=== PATIENT | female | born 2000 | race Hispanic/Latino ===

== ENCOUNTER 2022-03-20 10:47 | Outpatient (CLI) | payer BC, OTHER | END 2022-03-20 10:48 | disposition home or self-care (01) | LOC: CSHLAB 10:47 | PROVIDERS: ATTEND Obstetrics & Gynecology | DX: Z20.822 Contact with and (suspected) exposure to COVID-19 (principal) | CPT/HCPCS: U0003; U0005 ==

== ENCOUNTER 2022-03-20 11:29 | Day surgery (SDC) | payer BC, OTHER ==
[2022-03-20 12:13] VITALS: BMI 27.4
[2022-03-20] MEDS ORDERED: hydrALAZINE 20 MG/ML VIAL SLOW IVP PRN (12:32)
== END 2022-03-20 13:15 | disposition home or self-care (01) ==
LOC: CSHLD/OP 11:29
PROVIDERS: ATTEND Obstetrics & Gynecology
DX: O99.891 Other specified diseases and conditions complicating pregnancy (principal); L50.9 Urticaria, unspecified; Z3A.38 38 weeks gestation of pregnancy

== ENCOUNTER 2022-03-25 19:30 | Inpatient (IN) | payer BC, MEDICAID ==
[~2022-03-25 19:30] MED LIST: Acetaminophen 500 MG TAB PO PRN; Butorphanol Tartrate 1 MG/ML VIAL SLOW IVP PRN; Carboprost 250 MCG/ML AMP IM PRN; Diphenoxylate HCl/Atropine Tablet PO PRN; Docusate 100 MG CAP PO PRN; HYDROcodone/Acetaminophen 5/325 mg Tablet PO PRN; Ibuprofen 800 MG TAB PO PRN; Lidocaine 1% (PF) 30 ML VIAL SC PRN; Methylergonovine 0.2 MG/ML VIAL IM PRN; Misoprostol 100 MCG TAB VAG SCH; Misoprostol 200 MCG TAB PR PRN; NS w/ Oxytocin 30 units 500 ML IV SCH; Ondansetron PF 4 MG/2 ML Vial IVP PRN; Promethazine HCl 25 MG/ML VIAL IM PRN; Zolpidem Tartrate 5 MG TAB PO PRN; hydrALAZINE 20 MG/ML VIAL SLOW IVP PRN
[2022-03-26] MEDS ORDERED: NS w/ Oxytocin 30 units 500 ML IV SCH (00:30)
[2022-03-26 00:48] VITALS: BMI 28.1
[2022-03-26 01:42] LABS: Mean Corpuscular HGB CONC 34.5 g/dL (32.0-36.0); Mean Corpuscular Hemoglobin 28.4 pg (27.0-33.0); Mean Corpuscular Volume 82.5 fl (81.6-98.3); Mean Platelet Volume 10.2 fl (7.4-10.4); Platelet Count 226 10x3/uL (150-450); RBC Distribution Width 12.8 % (11.5-14.5); Red Blood Cell (RBC) Count 4.22 10x6/uL (3.90-5.03); White Blood Cell (WBC) Count 10.6 10x3/uL (3.5-10.5)
[2022-03-26] MEDS: Misoprostol 100 MCG TAB VAG SCH ×4 (01:44→14:22)
[2022-03-26 02:13] LABS: Hep B Surf Ag Non-Reactive S/CO (NonReactive)
[2022-03-26 02:14] LABS: Syphilis Antibody Nonreactive (Nonreactive); Syphilis Antibody Index 0.03 S/CO (<1.00 Non-Reactive)
[2022-03-26 02:26] LABS: HBSAg Index 0.15 S/CO (0-0.99)
[2022-03-26] MEDS: Lactated Ringer's 1,000 ML IV SCH ×2 (09:35→14:21)
[2022-03-26] MEDS ORDERED: Fentanyl 2 mcg/Bup 0.1% Cadd 100 ML ONE (13:42)
[2022-03-26] MEDS ORDERED: Lactated Ringer's 500 ML IV PRN (14:49)
[2022-03-26] MEDS ORDERED: Ondansetron PF 4 MG/2 ML Vial IVP PRN (14:49)
[2022-03-26] MEDS ORDERED: diphenhydrAMINE 50 MG/ML VIAL IVP PRN (14:49)
[2022-03-26] MEDS ORDERED: ePHEDrine Sulfate 50 MG/10 ML VIAL SLOW IVP PRN (14:49)
[2022-03-26] MEDS ORDERED: Moisturizing Cream (Eucerin) 113 GM JAR TOP PRN (14:49)
[2022-03-26] MEDS ORDERED: Acetaminophen 325 MG TAB PO PRN (14:49)
[2022-03-26] MEDS ORDERED: Promethazine HCl 25 MG/ML VIAL IM PRN (14:49)
[2022-03-26] MEDS ORDERED: Naloxone HCl 0.4 mg/ml Vial IVP PRN ×2 (14:49)
[2022-03-26] MEDS ORDERED: Fentanyl 2 mcg/Bupivacaine 0.1% Cassette 100 ML EPIDURAL SCH (15:00)
[2022-03-26] MEDS ORDERED: Communication Order-Pharmacy FS SCH (15:00)
[2022-03-26] MEDS ORDERED: Methylergonovine 0.2 MG/ML VIAL ONE (20:24)
[2022-03-26] MEDS ORDERED: Misoprostol 200 MCG TAB ONE (20:25)
[2022-03-26] MEDS ORDERED: Ibuprofen 800 MG TAB PO PRN (21:03)
[2022-03-27] MEDS ORDERED: Misoprostol 200 MCG TAB VAG PRN (01:17)
[2022-03-27] MEDS ORDERED: Varicella virus, LIVE 0.5 ML VIAL SC ONE (01:17)
[2022-03-27] MEDS ORDERED: Benzocaine-Menthol 82.5 ML CAN TOP PRN (01:17)
[2022-03-27] MEDS ORDERED: Boostrix 0.5 ML (Tdap) VIAL IM ONE (01:17)
[2022-03-27] MEDS ORDERED: HYDROcodone/Acetaminophen 5/325 mg Tablet PO PRN (01:17)
[2022-03-27] MEDS ORDERED: Bisacodyl 10 MG SUPP PR PRN (01:17)
[2022-03-27] MEDS ORDERED: diphenhydrAMINE 25 MG CAP PO PRN (01:17)
[2022-03-27] MEDS ORDERED: Milk Of Magnesia 30 ML UDCUP PO PRN (01:17)
[2022-03-27] MEDS ORDERED: Zolpidem Tartrate 5 MG TAB PO PRN (01:17)
[2022-03-27] MEDS ORDERED: Preparation H Ointment 28 GM TUBE PR PRN (01:17)
[2022-03-27] MEDS ORDERED: hydrALAZINE 20 MG/ML VIAL SLOW IVP PRN (01:17)
[2022-03-27] MEDS ORDERED: Measles/Mumps/Rubella 10 MCG/0.5 ML VIAL SC ONE (01:17)
[2022-03-27] MEDS ORDERED: Ondansetron PF 4 MG/2 ML Vial IVP PRN (01:17)
[2022-03-27] MEDS ORDERED: Promethazine HCl 25 MG/ML VIAL IM PRN (01:17)
[2022-03-27] MEDS ORDERED: Lanolin Ointment 7 GM TUBE TOP PRN (01:17)
[2022-03-27] MEDS ORDERED: NS w/ Oxytocin 30 units 500 ML IV SCH (02:00)
[2022-03-27] MEDS: Ibuprofen 800 MG TAB PO SCH ×3 (05:11→21:37)
[2022-03-27] MEDS: Prenatal Vitamin 1 TAB PO SCH (07:59)
[2022-03-27] MEDS: Docusate 100 MG CAP PO SCH ×2 (07:59→21:37)
[2022-03-27] MEDS: Ferrous Sulfate 325 MG TAB PO SCH ×2 (08:00→14:17)
[2022-03-28] MEDS: Ibuprofen 800 MG TAB PO SCH (04:59)
[2022-03-28] MEDS: Ferrous Sulfate 325 MG TAB PO SCH (08:31)
[2022-03-28 08:59] VITALS: BP 115/53; TEMP 98.2
[2022-03-28] MEDS: Docusate 100 MG CAP PO SCH (09:00)
[2022-03-28] MEDS: Prenatal Vitamin 1 TAB PO SCH (09:00)
== END 2022-03-28 12:10 | disposition home or self-care (01) | DRG 807 ==
LOC: CSHLD 03-26 00:14 → CSHPP 03-26 23:45
PROVIDERS: ADMIT Obstetrics & Gynecology; ATTEND Obstetrics & Gynecology
PROC: 10E0XZZ Delivery of Products of Conception, External Approach (ICD-10-PCS; principal; 2022-03-26)
PROC: 0HQ9XZZ Repair Perineum Skin, External Approach (ICD-10-PCS; 2022-03-26)
DX: O70.0 First degree perineal laceration during delivery (principal); Z37.0 Single live birth; Z3A.39 39 weeks gestation of pregnancy
CPT/HCPCS: 85027; 86780; 86850; 86900; 86901; 87340; J2210; J2405; J2590; J7120